=== PATIENT | male | born 1985 | race Caucasian/White ===

== ENCOUNTER 2017-01-03 12:45 | Inpatient (IN) | payer OTHER ==
[2017-01-03 12:49] VITALS: BMI 26.6
[2017-01-03] MEDS ORDERED: SODIUM CHLORIDE 1,000 ML IV STA (13:30)
[2017-01-03] MEDS ORDERED: HYDROmorphone HCL CARPU-JECT 2 MG/1 ML DISP.SYRIN IVPB ONE (13:31)
[2017-01-03] MEDS ORDERED: ONDANSETRON *ODT* 4 MG TABLET SL ONE (13:31)
[2017-01-03] MEDS ORDERED: CLINDAMYCIN 900 MG PREMIX IVPB 50 ML IVPB ONE ×2 (13:35→14:49)
[2017-01-03 14:29] LABS: BASOPHIL 0.1 % (0-2.0); MCH 29.4 pg (25.7-33.7); MCHC 33.3 g/dl (32.0-35.9); MEAN CELL VOLUME 88.4 fl (80-96); MEAN PLT VOLUME 8.5 fl (7.5-11.1); NEUTROPHILS 86.2 % (42.8-82.8); PLATELET COUNT 173 K/MM3 (134-434); RDW 12.3 % (11.9-15.9); WHITE BLOOD COUNT 13.3 K/mm3 (4.0-10.0)
--- NOTE | 2017-01-03 14:39 | PDOC ---
History of Present Illness <Janusz Hernandez - Last Filed: 01/03/17 16:10> - General History Source: Patient Exam Limitations: No Limitations - History of Present Illness Initial Comments: 01/03/17 14:46 The patient is a 31-year-old man with no past medical history who presents to the emergency department with complaints of an atraumatic right buttocks abscess for the past 4 days. Upon triage, patient was found to be febrile to 101.0 orally. He reports lifting heavy objects on Sunday. He states that this has never happened in the past. He also reports associated symptoms of chills and diaphoresis. No other complaints. No chest pain, lightheaedness, dizziness, palpitations. No cough, shortness of breath No abdominal pain, nausea, vomiting, diarrhea, constipation, hematochezia, hematuria, dysuria, urinary frequency/hesitancy, testicular pain, penile discharge. Allergies: No Known Drug Allergies Past Surgical History: Circumcision at age 15. Social History: Tobacco use (half a pack/day). Social EtOH use. No recreational drug use. <Hoda Barroso - Last Filed: 01/04/17 08:22> - General Chief Complaint: Abscess Boil Stated Complaint: RT BUTTOCKS PAIN Time Seen by Provider: 01/03/17 13:26 Past History - Past Medical History Other medical history: NONE - Psycho/Social/Smoking Cessation Hx Anxiety: No Suicidal Ideation: No Smoking Status: No Smoking History: Current every day smoker Number of Cigarettes Smoked Daily: 10 Information on smoking cessation initiated: Yes 'Breaking Loose' booklet given: 01/03/17 Hx Alcohol Use: Yes (SOCIAL) Drug/Substance Use Hx: No Substance Use Type: None <Janusz Hernandez - Last Filed: 01/03/17 16:10> <Hoda Barroso - Last Filed: 01/04/17 08:22> - Past Medical History Allergies/Adverse Reactions: Allergies Allergy/AdvReac Type Severity Reaction Status Date / Time No Known Allergies Allergy Verified 01/03/17 12:49 Home Medications: Ambulatory Orders No Home Medications 0 dose .ROUTE UTDICT 08/13/12 Review of Systems - Review of Systems Able to Perform ROS?: Yes Comments:: 01/03/17 14:48 GENERAL/CONSTITUTIONAL: Yes: Fever. Chills. Diaphoresis. HEAD, EYES, EARS, NOSE AND THROAT: No change in vision. No ear pain or discharge. No sore throat. CARDIOVASCULAR: No chest pain or shortness of breath. RESPIRATORY: No cough, wheezing, or hemoptysis. GASTROINTESTINAL: No nausea, vomiting, diarrhea or constipation. GENITOURINARY: No dysuria, frequency, or change in urination. MUSCULOSKELETAL: No joint or muscle swelling or pain. No neck or back pain. SKIN: Yes: Right buttock abscess. No rash NEUROLOGIC: No headache, vertigo, loss of consciousness, or change in strength/ sensation. ENDOCRINE: No increased thirst. No abnormal weight change. HEMATOLOGIC/LYMPHATIC: No anemia, easy bleeding, or history of blood clots. ALLERGIC/IMMUNOLOGIC: No hives or skin allergy. <Hoda Barroso - Last Filed: 01/04/17 08:22> *Physical Exam - Vital Signs Last Vital Signs Temp Pulse Resp BP Pulse Ox 101.0 F H 104 H 20 137/75 99 01/03/17 12:46 01/03/17 12:46 01/03/17 12:46 01/03/17 12:46 01/03/17 12:46 <Janusz Hernandez - Last Filed: 01/03/17 16:10> - Vital Signs Last Vital Signs Temp Pulse Resp BP Pulse Ox 101.0 F H 104 H 20 137/75 99 01/03/17 12:46 01/03/17 12:46 01/03/17 12:46 01/03/17 12:46 01/03/17 12:46 - Physical Exam Comments: 01/03/17 14:49 GENERAL: Awake, alert, and fully oriented, in no acute distress HEAD: No signs of trauma EYES: PERRLA, EOMI, sclera anicteric, conjunctiva clear ENT: Auricles normal inspection, hearing grossly normal, nares patent, oropharynx clear without exudates. Moist mucosa NECK: Normal ROM, supple, no lymphadenopathy, JVD, or masses LUNGS: Breath sounds equal, clear to auscultation bilaterally. No wheezes, and no crackles HEART: Regular rate and rhythm, normal S1 and S2, no murmurs, rubs or gallops ABDOMEN: Soft, nontender, normoactive bowel sounds. No guarding, no rebound. No masses EXTREMITIES: Normal range of motion, no edema. No clubbing or cyanosis. No cords, erythema, or tenderness NEUROLOGICAL: Cranial nerves II through XII grossly intact. Normal speech. RECTAL: Indurated right buttock cellulitis pointing at around 3 o'clock. <Hoda Barroso - Last Filed: 01/04/17 08:22> ED Treatment Course - LABORATORY CBC & Chemistry Diagram: 01/03/17 14:01 01/03/17 14:01 - RADIOLOGY Radiology Studies Ordered: Category Date Time Status ABDOMEN & PELVIS CT WITH CONTR [CT] Stat CT Scan 01/03/17 13:33 Ordered <Janusz Hernandez - Last Filed: 01/03/17 16:10> - LABORATORY CBC & Chemistry Diagram: 01/03/17 14:01 01/03/17 14:01 - ADDITIONAL ORDERS Additional order review: 01/03/17 14:01 RBC 4.22 MCV 88.4 MCHC 33.3 RDW 12.3 MPV 8.5 Neutrophils % 86.2 H Lymphocytes % 7.2 L Monocytes % 6.5 Eosinophils % 0.0 Basophils % 0.1 <Hoda Barroso - Last Filed: 01/04/17 08:22> Medical Decision Making - Medical Decision Making 01/03/17 14:50 Patient evaluated by [facility], who coincidentally happened to be in the ED. States that they will notify Dr. Hernandez regarding patient. 01/03/17 15:55 MicroBlogged [facility]. 01/03/17 16:[address] Warren. Case was discussed. Accepts case. <Hoda Barroso - Last Filed: 01/04/17 08:22> *DC/Admit/Observation/Transfer - Discharge Dispostion Admit: Yes - Attestations Physician Attestion: 01/03/17 14:39 I, Dr. Janusz Hernandez, attest that this document has been prepared under my direction and personally reviewed by me in its entirety. I further attest, that it accurately reflects all work, treatment, procedures and medical decision -making performed by me. <Janusz Hernandez - Last Filed: 01/03/17 16:10> <Hoda Barroso - Last Filed: 01/04/17 08:22> Diagnosis at time of Disposition: Perirectal abscess - Discharge Dispostion Disposition: HOME Condition at time of disposition: Good
[2017-01-03 14:44] LABS: INR 1.59 (0.82-1.09); PROTHROMBIN TIME (PATIENT) 17.7 SEC (9.98-11.88)
[2017-01-03] MEDS ORDERED: ONDANSETRON *ODT* 4 MG TABLET ONE (14:49)
[2017-01-03] MEDS ORDERED: HYDROmorphone HCL CARPU-JECT 2 MG/1 ML DISP.SYRIN ONE (14:49)
[2017-01-03 15:24] LABS: ALBUMIN 3.3 g/dl (3.4-5.0); ALK PHOS 83 U/L (45-117); ANION GAP 10 (8-16); CO2 26 mmol/L (21-32); CREATININE 0.9 mg/dL (0.7-1.3); GLUCOSE,RANDOM 109 mg/dL (74-106); SGOT/AST 17 U/L (15-37); SGPT/ALT 25 U/L (12-78); TOT PROT 7.9 g/dl (6.4-8.2)
--- NOTE | 2017-01-03 15:31 | CONSULT ---
- Consultation REQUESTING PROVIDER: Dr. Hernandez CONSULT REQUEST: We have been asked to surgically evaluate this patient for right gluteal abscess. HISTORY OF PRESENT ILLNESS: 31 yo M presented to Ed complaining of right gluteal pain/firmness that began on Sunday (3 days ago) and worsened on Sunday. The patient states the pain is severe, worse with coughing and BM's. He had associated fever and sweating. He has not had anything like this before. His last BM was diarrhea earlier today. He last ate Jello yesterday and drank a glass of coke around noon today. PMHx: Kidney stone 2 years ago, denies other PSHx: Circumcision age 15 Social History: Current every day smoker, occasional alcohol use Home Medications Medication Instructions Recorded No Home Medications 0 dose .ROUTE UTDICT 08/13/12 Allergies Allergy/AdvReac Type Severity Reaction Status Date / Time No Known Allergies Allergy Verified 01/03/17 12:49 REVIEW OF SYSTEMS: CONSTITUTIONAL: Present: fever, sweats Absent: generalized weakness CARDIOVASCULAR: Absent: chest pain, syncope, palpitations, lightheadedness RESPIRATORY: Absent: cough, shortness of breath GASTROINTESTINAL: Absent: abdominal pain, abdominal distension, nausea, vomiting GENITOURINARY: Absent: dysuria, frequency, urgency MUSCULOSKELETAL: Absent: myalgia, arthralgia SKIN: Absent: rash, itching HEMATOLOGIC/IMMUNOLOGIC: Absent: easy bleeding, easy bruising NEUROLOGIC: Absent: headache, dizziness, PHYSICAL EXAM: GENERAL: Awake, alert, and fully oriented, in no acute distress, appears uncomfortable HEAD: Normal with no signs of trauma. EYES: PERRL, sclera anicteric, conjunctiva clear. NECK: Normal ROM LUNGS: Clear to auscultation bilat anteriorly. HEART: Regular rate and rhythm ABDOMEN: Soft, nontender, not distended Buttocks: right buttock with erythema, induration and approx 4 cm area of fluctuance, very tender to palp, no opening or drainage MUSCULOSKELETAL: Normal ROM at all joints UPPER EXTREMITIES: 2+ pulses, warm, well-perfused. LOWER EXTREMITIES: 2+ pulses, warm, well-perfused NEUROLOGICAL: Normal speech, gait not observed. PSYCH: Cooperative. Good eye contact. Appropriate mood and affect. SKIN: Warm, dry Vital Signs Temperature 101.0 F H 01/03/17 12:46 Pulse Rate 104 H 01/03/17 12:46 Respiratory Rate 20 01/03/17 12:46 Blood Pressure 137/75 01/03/17 12:46 O2 Sat by Pulse Oximetry (%) 99 01/03/17 12:46 Lab Results WBC 13.3 K/mm3 (4.0-10.0) H 01/03/17 14:01 RBC 4.22 M/mm3 (4.00-5.60) 01/03/17 14:01 Hgb 12.4 GM/dL (11.7-16.9) 01/03/17 14:01 Hct 37.3 % (35.4-49) 01/03/17 14:01 MCV 88.4 fl (80-96) 01/03/17 14:01 MCHC 33.3 g/dl (32.0-35.9) 01/03/17 14:01 RDW 12.3 % (11.9-15.9) 01/03/17 14:01 Plt Count 173 K/MM3 (134-434) 01/03/17 14:01 Blood Type A NEGATIVE 01/03/17 14:08 Antibody Screen Negative 01/03/17 14:07 INR 1.59 (0.82-1.09) H 01/03/17 14:01 CT ordered by ED, pending Problem List - Problems (1) Gluteal abscess Assessment/Plan: Patient discussed with Dr. Hernandez Plan to take patient to OR tonight for I&D NPO, IV fluids IV abx Pain control Type and screen ordered by ED Code(s): L02.31 - CUTANEOUS ABSCESS OF BUTTOCK Visit type - Case Type Case Type: ED Admission - New patient This patient is new to me today: Yes Date on this admission: 01/03/17
--- NOTE | 2017-01-03 17:19 | MSN ---
Progress Note (short form) - Note Progress Note: CC: left buttock pain HPI: Patient is a 31 year old male with past medical history of hemorrhoids that presented to the ER after 5 days left buttock pain while lifting chairs at work. The pain has become progressively worse since then and has been accompanied by fevers and chills that started on Sunday night. The patient has increased pain with movement and pressure, especially when sitting. The patient has been bathing in epson salt baths with minor improvement in symptoms. The patient stated that he shaves the area regularly and has had ingrown hairs previously on his thigh that he stated felt similar but with less intensity. The patient denies any anal trauma foreign objects or penetration. The patient also denies any chest pain, SOB, headache, nausea or vomiting. SoHx: smokes 1/2 pack a day, drinks a few drinks on the weekends, and is not currently sexually active but has a history o sex with both men and women. Medhx: hemorrhoids with no surgical or medical intervention needed Allergies: no known allergies Surgical Hx: circumcision at age 15 Family Hx: no pertinent family history Home Medications Medication Instructions Recorded No Home Medications 0 dose .ROUTE UTDICT 08/13/12 Vital Signs Period Temp Pulse Resp BP Sys/Wells Pulse Ox Last 24 Hr 101.0 F 104 20 137/75 99 Exam: General- alert and oriented in no acute distress, appeared stated age. Head- head normocephalic and atraumatic Eyes- FADUMO, EOM intact, sclera inecteric and conjunctiva clear. Neck- supple, normal range of motion, trachea midline, no JVD. Heart- regular rate and rhythm, no murmurs rubs or gallops. Lungs- clear to auscultation bilaterally in all lung fontaine, with no rales, rhonchi, or wheezes. Upper extremities- 5/5 muscle strength, 2/4 pulses, normal AROM, PROM intact sensation Lower extremities- 5/5 muscle strength, 2/4 pulses, normal AROM and PROM, and intact sensation. Patient has a red erythemtous, warm, firm, and edematous abscess located on the right buttocks extending from the gluteal fold along the perianal region that is not open or draining. No penile discharge noted on penile examination. Abdomen- no guarding or distention, normoactive bowel sounds, no tenderness to palpation. Psych: Cooperative Skin: [place], warm and dry. Laboratory Results - last 24 hr 01/03/17 01/03/17 01/03/17 14:01 14:01 14:01 WBC 13.3 H RBC 4.22 Hgb 12.4 Hct 37.3 MCV 88.4 MCHC 33.3 RDW 12.3 Plt Count 173 MPV 8.5 Neutrophils % 86.2 H Lymphocytes % 7.2 L Monocytes % 6.5 Eosinophils % 0.0 Basophils % 0.1 INR 1.59 H Sodium 137 Potassium 4.1 Chloride 101 Carbon Dioxide 26 Anion Gap 10 BUN 15 Creatinine 0.9 Creat Clearance w eGFR > 60 Random Glucose 109 H Calcium 9.0 Total Bilirubin 1.0 AST 17 ALT 25 Alkaline Phosphatase 83 Total Protein 7.9 Albumin 3.3 L Lipase 67 L Blood Type Antibody Screen 01/03/17 01/03/17 14:07 14:08 WBC RBC Hgb Hct MCV MCHC RDW Plt Count MPV Neutrophils % Lymphocytes % Monocytes % Eosinophils % Basophils % INR Sodium Potassium Chloride Carbon Dioxide Anion Gap BUN Creatinine Creat Clearance w eGFR Random Glucose Calcium Total Bilirubin AST ALT Alkaline Phosphatase Total Protein Albumin Lipase Blood Type A NEGATIVE A NEGATIVE Antibody Screen Negative Assessment and Plan: Patient is a 31 year old male with a past medical history of hemmoriods that present ed to the Er after 5 day of right buttock pain and found to have sepsis secondary to right buttock abbess. 1) sepsis secondary to right buttock abbess -secondary to ingrown hair, infected razor cut, or heavy lifting - tmax >101, leukocytes of 13, HR > 90, with lactic acid pending. - give iv N/S fluid 125 mls/hr - 900 mg clindamycin given in the ED - continue clindamycin 600 mg q6hrs - Tylenol for fevers - cultures pending - NPO for possible surgery tonight - CT of abdomen and pelvis pending - Surgery consult placed
--- NOTE | 2017-01-03 17:23 | PN ---
Teaching Attending Note Name of Resident: Indy Hui ATTENDING PHYSICIAN STATEMENT I saw and evaluated the patient. I reviewed the resident's note and discussed the case with the resident. I agree with the resident's findings and plan as documented. SUBJECTIVE:31yo M c/o R buttock pain x 2days. states he had some discomfort there several days prior and thought he had an ingrown hair as he shaves his buttocks and back. pain continued to worsen and developed subjective fevers and chills yesterday which prompted him the ER. has never had similar episode in the past, never treated for soft skin infection or abscess in the past. denies CP, SOB, N/V/C/D, IVDA OBJECTIVE: Last Vital Signs Temp Pulse Resp BP Pulse Ox 101.0 F H 104 H 20 137/75 99 01/03/17 12:46 01/03/17 12:46 01/03/17 12:46 01/03/17 12:46 01/03/17 12:46 General NAD CV S1 S2 RRR no murmur/rub/gallop Lungs CTA B/L no wheezing/rales/rhonchi Buttocks- R medial buttock 3cm with surrounding erythema +fluctuant. +warmth + tender. no active drainage ASSESSMENT AND PLAN: 31yo M with no PMH presented to the ER with R buttock pain 1. Sepsis due to R buttock cellulitis and jennifer-rectal abscess- Medicine admission. Tm 101 with tachycardia and leukocytosis 13.3. CT scan pending to evaluate extension of abscess. surgery consulted and plan for I&D in the OR tonight. NPO, IVF, pain control. started on Clindamcyin 600mg Q6H. will consider adding Flagyl after procedure pending on extent of abscess. HIV testing. f/u Cx. 2. DVT ppx- EAM
[2017-01-03] MEDS ORDERED: LIDOCAINE HCL 1%, 10 MG/ML (20ML VIAL) ONE (17:39)
[2017-01-03] MEDS ORDERED: BUPIVACAINE HCL/PF 0.5% (5MG/ML) 10 ML VIAL ONE (17:39)
--- NOTE | 2017-01-03 17:46 | HP ---
CHIEF COMPLAINT: Right buttock pain PCP: Magdalena Navarrete. Cannot recall name of the doctor HISTORY OF PRESENT ILLNESS: Patient is a 31 year old male with no PMHx who presented to the ED with complaints of right buttock pain that started Sunday (12/30/16) evening and noticed it after lifting heavy chairs for his work. Patient states when he checked his right buttock he noticed an ingrown hair and started taking baths with Epson Salt without improvement. Patient the next day noticed the ingrown hair grew with a rash surrounding the area with difficulty sitting on his buttocks. He took Tylenol for pain relief but without much improvement. The following two days (01/01/17 and 01/02/17) patient reports having fever, chills , increasing left buttock pain to the point he could not sit on his buttock. Pain and tenderness worsened today without any improvement with pain medications today, which prompted this ED visit. Patient does admit to shaving his whole body including in the buttocks area and has experienced ingrown hair, but not as severe. Patient also admits to having hemorrhoids in the past but with no bleeding and no surgical intervention required. Patient denies having any similar symptoms in the past. Denies any trauma, penetration, or foreign body object insertion. Otherwise, patient denies abdominal pain, suprapubic tenderness, penile discharge, testicular pain, dysuria, frequency, hesitancy, hematuria, constipation, hematochezia, chest pain, palpitations, shortness of breath. ER course was notable for: (1) IV Normal Saline (2) IV abc with Clindamycin and Dilaudid for pain (3) Found to have fever, leukocytosis Recent Travel: Denies PAST MEDICAL HISTORY: Denies PAST SURGICAL HISTORY: Circumcision at the age of 15 Social History: Smokin/2 PPD Alcohol: Socially Drugs: Denies Sexual History: Sex with both females and males with last sexual encounter 4 months ago. Uses condoms for protection Family History: Denies Allergies: No Known Allergies Allergy (Verified 01/03/17 12:49) HOME MEDICATIONS: Home Medications Medication Instructions Recorded No Home Medications 0 dose .ROUTE UTDICT 08/13/12 REVIEW OF SYSTEMS CONSTITUTIONAL: fever, chills Absent: diaphoresis, generalized weakness, malaise, loss of appetite, weight change HEENT: Absent: rhinorrhea, nasal congestion, throat pain, throat swelling, difficulty swallowing, mouth swelling, ear pain, eye pain, visual changes CARDIOVASCULAR: Absent: chest pain, syncope, palpitations, irregular heart rate, lightheadedness , peripheral edema RESPIRATORY: Absent: cough, shortness of breath, dyspnea with exertion, orthopnea, wheezing, stridor, hemoptysis GASTROINTESTINAL: diarrhea, right buttock pain and tenderness Absent: abdominal pain, abdominal distension, nausea, vomiting, constipation, melena, hematochezia GENITOURINARY: Absent: dysuria, frequency, urgency, hesitancy, hematuria, flank pain, genital pain MUSCULOSKELETAL: Absent: myalgia, arthralgia, joint swelling, back pain, neck pain SKIN: Absent: rash, itching, pallor HEMATOLOGIC/IMMUNOLOGIC: Absent: easy bleeding, easy bruising, lymphadenopathy, frequent infections ENDOCRINE: Absent: unexplained weight gain, unexplained weight loss, heat intolerance, cold intolerance NEUROLOGIC: Absent: headache, focal weakness or paresthesias, dizziness, unsteady gait, seizure, mental status changes, bladder or bowel incontinence PSYCHIATRIC: Absent: anxiety, depression, suicidal or homicidal ideation, hallucinations. Vital Signs - 24 hr 01/03/17 01/03/17 12:46 18:22 Temperature 101.0 F H Pulse Rate 104 H 90 Respiratory 20 18 Rate Blood Pressure 137/75 125/65 O2 Sat by Pulse 99 Oximetry (%) PHYSICAL EXAMINATION GENERAL: Awake, alert, and fully oriented, in no acute distress. EYES: Pupils equal, round and reactive to light, extraocular movements intact, sclera anicteric, conjunctiva clear. EARS, NOSE, THROAT: Oropharynx clear without exudates. Moist mucous membranes. NECK: Normal range of motion, supple without lymphadenopathy, JVD, or masses. LUNGS: Breath sounds equal, clear to auscultation bilaterally. No wheezes, and no crackles. No accessory muscle use. HEART: Regular rate and rhythm, normal S1 and S2 without murmur, rub or gallop. ABDOMEN: Soft, nontender, not distended, normoactive bowel sounds, no guarding, no rebound, no masses. No hepatomegaly or splenomegaly. RIGHT BUTTOCK: Erythema, warmth, swelling, induration extending to the perianal area with no opened wound or draining. Severe tenderness and firmness upon palpation. MUSCULOSKELETAL: No CVA tenderness. LOWER EXTREMITIES: No peripheral edema. NEUROLOGICAL: Normal speech. No focal neuro deficits. No facial droop SKIN: Warm, dry, normal turgor, no rashes or lesions noted, normal capillary refill. Laboratory Results - last 24 hr 01/03/17 01/03/17 01/03/17 14:01 14:01 14:01 WBC 13.3 H RBC 4.22 Hgb 12.4 Hct 37.3 MCV 88.4 MCHC 33.3 RDW 12.3 Plt Count 173 MPV 8.5 Neutrophils % 86.2 H Lymphocytes % 7.2 L Monocytes % 6.5 Eosinophils % 0.0 Basophils % 0.1 INR 1.59 H Sodium 137 Potassium 4.1 Chloride 101 Carbon Dioxide 26 Anion Gap 10 BUN 15 Creatinine 0.9 Creat Clearance w eGFR > 60 Random Glucose 109 H Calcium 9.0 Total Bilirubin 1.0 AST 17 ALT 25 Alkaline Phosphatase 83 Total Protein 7.9 Albumin 3.3 L Lipase 67 L Blood Type Antibody Screen 01/03/17 01/03/17 14:07 14:08 WBC RBC Hgb Hct MCV MCHC RDW Plt Count MPV Neutrophils % Lymphocytes % Monocytes % Eosinophils % Basophils % INR Sodium Potassium Chloride Carbon Dioxide Anion Gap BUN Creatinine Creat Clearance w eGFR Random Glucose Calcium Total Bilirubin AST ALT Alkaline Phosphatase Total Protein Albumin Lipase Blood Type A NEGATIVE A NEGATIVE Antibody Screen Negative ASSESSMENT/PLAN: Patient is a 31 year old male with no PMHx who presents with left buttocks pain and was found to be septic in the emergency department. Patient admitted for further monitoring and management. Sepsis Secondary to Right Buttocks Cellulitis and Abscess -Likely secondary to ingrown hair, Infected razor -Initially fever >101, Leukocytosis >13, HR >90 -Lactic Acid pending -Continue IV normal Saline @125mls/hr -Continue Clindamycin 600mg IVPB Q6H for anaerobic, gram positive, and MRSA coverage -Continue Tylenol 1gm IVPB Q6H PRN -Blood cultures pending -CT abdomen and pelvis pending to assess how deep and the extent of the abscess -NPO for surgery tonight -Continue Pain control with Dilaudid 1mg Q4H PRN F/E/N -IV NS @125mls/hr -Electrolytes wnl -NPO Prophylaxis -SCD's for DVT. Patient low risk and ambulates -No GI prophylaxis indicated Disposition -Full code -Surgery this evening. Visit type - Emergency Visit Emergency Visit: Yes ED Registration Date: 01/03/17 Care time: The patient presented to the Emergency Department on the above date and was hospitalized for further evaluation of their emergent condition. - New Patient This patient is new to me today: Yes Date on this admission: 01/05/17 - Critical Care Critical Care patient: No
[2017-01-03] MEDS ORDERED: ACETAMINOPHEN 1000 MG/100 ML VIAL (NON FORMULARY) IVPB ONE (17:51)
[2017-01-03] MEDS ORDERED: HYDROmorphone HCL CARPU-JECT 1 MG/1 ML DISP.SYRIN IVPB PRN (17:54)
[2017-01-03] MEDS ORDERED: SODIUM CHLORIDE 1,000 ML IV SCH (18:00)
[2017-01-03] MEDS ORDERED: ACETAMINOPHEN INJECTION 100 ML IVPB ONE (18:07)
[2017-01-03] MEDS ORDERED: ACETAMINOPHEN 1000 MG/100 ML VIAL (NON FORMULARY) IVPB PRN ×2 (18:29→21:11)
--- NOTE | 2017-01-03 20:15 | OP ---
Operative Note - Note: Operative Date: 01/03/17 Pre-Operative Diagnosis: jennifer rectal abcess Operation: incision and drainage of abcess Findings: jennifer-rectal abcess Surgeon: Ham Hernandez Anesthesia: General Specimens Removed: cultures Estimated Blood Loss (mls): 10 Operative Report Dictated: Yes
[2017-01-03] MEDS ORDERED: PROPOFOL 20 ML ONE ×3 (20:16→20:25)
[2017-01-03] MEDS ORDERED: MIDAZOLAM HCL 2 MG/2 ML SINGLE DOSE VIAL ONE (20:16)
[2017-01-03] MEDS ORDERED: LIDOCAINE HCL/PF 2% SDV 5ML VIAL ONE (20:17)
[2017-01-03] MEDS ORDERED: KETOROLAC TROMETHAMINE 30 MG/1 ML VIAL ONE (20:39)
[2017-01-03] MEDS ORDERED: ONDANSETRON 4 MG/2 ML VIAL ONE (20:39)
[2017-01-03] MEDS ORDERED: CLINDAMYCIN 600MG PREMIX IVPB 50 ML IVPB SCH (21:00)
[2017-01-03] MEDS: SODIUM CHLORIDE 1,000 ML IV SCH (21:00)
[2017-01-03] MEDS ORDERED: ONDANSETRON 4 MG/2 ML VIAL IVPUSH PRN (21:04)
[2017-01-03] MEDS ORDERED: PROMETHAZINE HCL 25 MG/1 ML VIAL IVPUSH PRN (21:04)
[2017-01-03] MEDS ORDERED: LACTATED RINGERS SOLUTION 1,000 ML IV SCH (21:15)
[2017-01-03] MEDS: CLINDAMYCIN 600MG PREMIX IVPB 50 ML IVPB SCH (22:18)
[2017-01-04] MEDS: CLINDAMYCIN 600MG PREMIX IVPB 50 ML IVPB SCH ×4 (02:47→20:57)
[2017-01-04] MEDS ORDERED: CLINDAMYCIN 600MG PREMIX IVPB 50 ML IVPB SCH (03:00)
[2017-01-04] MEDS: SODIUM CHLORIDE 1,000 ML IV SCH (06:15)
[2017-01-04] MEDS ORDERED: ACETAMINOPHEN 325 MG TABLET (FP) PO ONE (06:18)
[2017-01-04 07:32] LABS: INR 1.55 (0.82-1.09); PROTHROMBIN TIME (PATIENT) 17.2 SEC (9.98-11.88)
[2017-01-04 07:35] LABS: ACTIVATED PTT 30.4 SECONDS (26.9-34.4)
[2017-01-04 07:52] LABS: MCH 29.6 pg (25.7-33.7); MCHC 33.7 g/dl (32.0-35.9); MEAN CELL VOLUME 87.7 fl (80-96); MEAN PLT VOLUME 9.3 fl (7.5-11.1); PLATELET COUNT 170 K/MM3 (134-434); RDW 12.6 % (11.9-15.9); WHITE BLOOD COUNT 11.3 K/mm3 (4.0-10.0)
[2017-01-04] MEDS: HYDROmorphone HCL CARPU-JECT 1 MG/1 ML DISP.SYRIN IVPB PRN ×2 (08:53→10:42)
[2017-01-04] MEDS ORDERED: HYDROmorphone HCL CARPU-JECT 1 MG/1 ML DISP.SYRIN IVPB ONE (10:42)
--- NOTE | 2017-01-04 10:44 | PN ---
Progress Note (short form) - Note Progress Note: Surgery- Dr. Hernandez Patient seen and examined. Patient resting, pain controlled. States he had some feeling of fever and sweats overnight. He is tolerating his diet and urinating without issue. Denies nausea, vomiting. Last Vital Signs Temp Pulse Resp BP Pulse Ox 98.2 F 79 18 122/73 100 01/04/17 08:22 01/04/17 08:22 01/04/17 08:22 01/04/17 08:22 01/03/17 21:45 CBC, BMP 01/04/17 06:20 01/03/17 14:01 Exam: Gen: NAD Buttocks: right buttock s/p I&D of perianal abscess, dressings and sheets saturated with serosanguinous drainage, dressing and packing replaced, surrounding erythema and firmess Problem List - Problems (1) Gluteal abscess Assessment/Plan: POD#1 s/p incision and drainage of perirectal abcess Additional 1 mg IV Dilaudid ordered x1, saturated packing and dressing replaced Pain management Regular diet Continue IV abx, follow-up cultures, ID consult Patient discussed with Dr. Hernandez Code(s): L02.31 - CUTANEOUS ABSCESS OF BUTTOCK
--- NOTE | 2017-01-04 11:08 | MSN ---
Progress Note (short form) - Note Progress Note: Subjective: Patient was sen by me at the bedside. when asked patient stated that he is feeling better. He is complaining of pain in the right buttocks which he believes to be post operative in nature. The pain is dissimilar and less intense than the pain felt on previous days. Patient is also complaining of "feeling hot" and still feels febrile. His temperature was take at the bedside and found to be 99.4. Otherwise, the patient denies any nausea, vomiting, headache, chest pain, SOB, or diarrhea. Vital Signs Period Temp Pulse Resp BP Sys/Wells Pulse Ox Last 24 Hr 98.2 F-102.2 F 70-104 14-22 105-137/60-75 96-100 Exam: Gen- alert and oriented in no acute distress Heart- Regular rate and rhythm with no murmurs, rubs or gallops Lungs- clear to auscultation bilaterally in all lung fontaine, with no rale, rhonchi or wheezes Extremities- 5/5 muscle strength, 2/4 pulses, with intact sensation in all extremities. There is no lower limb edema. Right buttocks is bandaged with evidence fluid draining through the bandaging with little evidence of blood present. Abdomen- No guarding or distension, normactive bowel sounds, no tenderness to palpation. Laboratory Results - last 24 hr 01/03/17 01/03/17 01/03/17 14:01 14:01 14:01 WBC 13.3 H RBC 4.22 Hgb 12.4 Hct 37.3 MCV 88.4 MCHC 33.3 RDW 12.3 Plt Count 173 MPV 8.5 Neutrophils % 86.2 H Lymphocytes % 7.2 L Monocytes % 6.5 Eosinophils % 0.0 Basophils % 0.1 INR 1.59 H PTT (Actin FS) Sodium 137 Potassium 4.1 Chloride 101 Carbon Dioxide 26 Anion Gap 10 BUN 15 Creatinine 0.9 Creat Clearance w eGFR > 60 Random Glucose 109 H Lactic Acid Calcium 9.0 Total Bilirubin 1.0 AST 17 ALT 25 Alkaline Phosphatase 83 Total Protein 7.9 Albumin 3.3 L Lipase 67 L Blood Type Antibody Screen 01/03/17 01/03/17 01/03/17 14:07 14:08 18:10 WBC RBC Hgb Hct MCV MCHC RDW Plt Count MPV Neutrophils % Lymphocytes % Monocytes % Eosinophils % Basophils % INR PTT (Actin FS) Sodium Potassium Chloride Carbon Dioxide Anion Gap BUN Creatinine Creat Clearance w eGFR Random Glucose Lactic Acid 1.2 Calcium Total Bilirubin AST ALT Alkaline Phosphatase Total Protein Albumin Lipase Blood Type A NEGATIVE A NEGATIVE Antibody Screen Negative 01/04/17 01/04/17 06:20 06:20 WBC 11.3 H RBC 4.09 Hgb 12.1 Hct 35.9 MCV 87.7 MCHC 33.7 RDW 12.6 Plt Count 170 MPV 9.3 Neutrophils % Lymphocytes % Monocytes % Eosinophils % Basophils % INR 1.55 H PTT (Actin FS) 30.4 Sodium Potassium Chloride Carbon Dioxide Anion Gap BUN Creatinine Creat Clearance w eGFR Random Glucose Lactic Acid Calcium Total Bilirubin AST ALT Alkaline Phosphatase Total Protein Albumin Lipase Blood Type Antibody Screen Current Medications Generic Name Dose Route Start Last Admin Trade Name Freq PRN Reason Stop Dose Admin Acetaminophen 1,000 mg 01/03/17 21:11 Ofirmev Injection - IVPB 01/04/17 12:30 Q6H PRN FEVER OR PAIN Acetaminophen 650 mg 01/04/17 10:35 Tylenol - PO Q6H PRN FEVER OR PAIN Hydromorphone HCl 1 mg 01/03/17 21:11 01/04/17 08:53 Dilaudid Injection - IVPB 1 mg Q4H PRN Administration PAIN Clindamycin Phosphate 50 mls @ 100 mls/hr 01/03/17 22:15 01/04/17 08:46 Cleocin 600 Mg Premix Ivpb - IVPB 100 mls/hr Q6H-IV THU Administration Imaging: CT abdomen and Pelvis (01/03/17)- 7 x 6 x 3 cm right perianal abscess, small non- obstructing renal calculi, with mild splenomegaly. Assessment and Plan: Patient is a 31 year old male with a past medical history of hemmoriods that present to the ED after 5 day of right buttock pain and found to have sepsis secondary to right buttock abbess. 1) Sepsis secondary to right buttock abbess - resolved - possibly secondary to ingrown hair, infected razor cut, or heavy lifting - tmax >101, currently 99.4 - leukocytes resolved at a value of 11.3 - MA within normal range - lactic acid on 04/05/17 was within nomral limits at 1.2 - D/C IV N/S fluid 125 mls/hr - D/C IV lactated ringers 1000 mls @ 125 mls/hr - 900 mg clindamycin given in the ED - D/C IV clindamycin 600 mg 50 mls @ 100 mls/hr q6hrs - Start clindamycin 600 mg PO q6hrs - Tylenol 650 mg PO q 6hr PRN for fevers - cultures pending - Surgery on board
--- NOTE | 2017-01-04 11:15 | PN ---
Physical Exam: SUBJECTIVE: Patient seen and examined by me at bedside. POD #1 s/p incision and drainage of right perianal abscess. Patient reports right buttock pain but his significantly improved since yesterday and is not the same pain prior to surgery. Otherwise, patient denies nausea, vomiting, abdominal pain, chest pain , palpitations, shortness of breath, dizziness. OBJECTIVE: Vital Signs Period Temp Pulse Resp BP Sys/Wells Pulse Ox Last 24 Hr 98.2 F-102.2 F 70-92 14-22 105-126/60-74 96-100 GENERAL: Awake, alert, and fully oriented, in no acute distress. LUNGS: Breath sounds equal, clear to auscultation bilaterally. No wheezes, and no crackles. No accessory muscle use. HEART: Regular rate and rhythm, normal S1 and S2 without murmur, rub or gallop. ABDOMEN: Soft, nontender, not distended, normoactive bowel sounds, no guarding, no rebound, no masses. RIGHT BUTTOCK: Packing and dressing in the right buttocks area with mild erythema and serosanguinous drainage. LOWER EXTREMITIES: No peripheral edema. NEUROLOGICAL: Normal speech. No focal neuro deficits. No facial droop Laboratory Results - last 24 hr 01/03/17 01/04/17 01/04/17 18:10 06:20 06:20 WBC 11.3 H RBC 4.09 Hgb 12.1 Hct 35.9 MCV 87.7 MCHC 33.7 RDW 12.6 Plt Count 170 MPV 9.3 INR 1.55 H PTT (Actin FS) 30.4 Lactic Acid 1.2 Active Medications Generic Name Dose Route Start Last Admin Trade Name Lenora PRN Reason Stop Dose Admin Acetaminophen 1,000 mg 01/03/17 21:11 Ofirmev Injection - IVPB 01/04/17 12:30 Q6H PRN FEVER OR PAIN Acetaminophen 650 mg 01/04/17 10:35 Tylenol - PO Q6H PRN FEVER OR PAIN Hydromorphone HCl 1 mg 01/03/17 21:11 01/04/17 08:53 Dilaudid Injection - IVPB 1 mg Q4H PRN Administration PAIN Clindamycin Phosphate 50 mls @ 100 mls/hr 01/03/17 22:15 01/04/17 08:46 Cleocin 600 Mg Premix Ivpb - IVPB 100 mls/hr Q6H-IV THU Administration ASSESSMENT/PLAN: Patient is a 31 year old male with no PMHx who presents with left buttocks pain and was found to be septic in the emergency department. Patient admitted for further monitoring and management. Sepsis Secondary to Right Buttocks Cellulitis and Abscess -Likely secondary to ingrown hair, Infected razor -Will discontinue Clindamycin and begin Unasyn 1.5g Q6H -Continue Tylenol 650mg Q6H PRN for fevers -Blood cultures and wound cultures pending -As per surgeon, necrotic tissue removed with extensive cellulitis removed -Continue Pain control with Dilaudid 1mg Q4H PRN -HIV rapid ordered F/E/N -IV NS @125mls/hr -Electrolytes wnl -Regular diet Prophylaxis -SCD's for DVT. Patient low risk and ambulates -No GI prophylaxis indicated Disposition -Full code -Continues to have low grade fevers. Cultures pending. Visit type - Emergency Visit Emergency Visit: Yes ED Registration Date: 01/03/17 Care time: The patient presented to the Emergency Department on the above date and was hospitalized for further evaluation of their emergent condition. - New Patient This patient is new to me today: No - Critical Care Critical Care patient: No
--- NOTE | 2017-01-04 13:37 | PN ---
Teaching Attending Note Name of Resident: Indy Hui ATTENDING PHYSICIAN STATEMENT I saw and evaluated the patient. I reviewed the resident's note and discussed the case with the resident. I agree with the resident's findings and plan as documented. SUBJECTIVE:continues to have pain in buttock but improved since yesterday. able to sit without difficulty. denies Cp, SOB,fever, chills, N/V/C/D OBJECTIVE: Last Vital Signs Temp Pulse Resp BP Pulse Ox 98.2 F 79 18 122/73 100 01/04/17 08:22 01/04/17 08:22 01/04/17 08:22 01/04/17 08:22 01/03/17 21:45 General NAD Buttocks- R medial buttock with packing. firm around edges. remains tender. erythema improved. ASSESSMENT AND PLAN: 31yo M with no PMH presented to the ER with R buttock pain 1. Sepsis due to R buttock cellulitis and jennifer-rectal abscess- afebrile. s/p I& D 01/03 yesterday. as per report copious necrotic tissuse removed and concern for rectal involvement. ID consulted. pain control. wound management per surgery. f/u Cx. 2. DVT ppx- EAM
--- NOTE | 2017-01-04 14:17 | PN ---
Progress Note (short form) - Note Progress Note: Anesthesia postop note 31 y/o M s/p GA for i&d perirectal abscess POD31, vss, aaox3, pain well controlled No anesthesia complications.
--- NOTE | 2017-01-04 14:41 | PN ---
Progress Note, Physician Chief Complaint: ID 31 year old male presents with perirectal abscess. He is not diabetic and no history of inflammatory bowel disease Had incision and drainage of collection. Low grade fever with WBC elevation - Current Medication List Current Medications: Active Medications Acetaminophen (Tylenol -) 650 mg PO Q6H PRN PRN Reason: FEVER OR PAIN Hydromorphone HCl (Dilaudid Injection -) 1 mg IVPB Q4H PRN PRN Reason: PAIN Last Admin: 01/04/17 08:53 Dose: 1 mg Clindamycin Phosphate (Cleocin 600 Mg Premix Ivpb -) 50 mls @ 100 mls/hr IVPB Q6H-IV THU Last Admin: 01/04/17 08:46 Dose: 100 mls/hr - Objective Vital Signs: Vital Signs Temperature 97.8 F 01/04/17 13:43 Pulse Rate 71 01/04/17 13:43 Respiratory Rate 18 01/04/17 09:00 Blood Pressure 113/71 01/04/17 13:43 O2 Sat by Pulse Oximetry (%) 100 01/04/17 09:00 Constitutional: Yes: Well Nourished, No Distress HENT: Yes: WNL, Atraumatic Neck: Yes: WNL, Supple Cardiovascular: Yes: S1, S2. No: Murmur Respiratory: Yes: WNL, Regular, CTA Bilaterally Gastrointestinal: Yes: WNL, Normal Bowel Sounds, Soft. No: Tenderness ...Rectal Exam: Yes: Other (perirectal incsion with packing tender no erythema crepitance fluctuance) Edema: No Labs: CBC, BMP 01/04/17 06:20 INR, PTT INR 1.55 (0.82-1.09) H 01/04/17 06:20 Problem List - Problems (1) Perirectal abscess Code(s): K61.1 - RECTAL ABSCESS Assessment/Plan Microbiology Laboratory Tests 01/03/17 01/03/17 14:01 14:01 WBC 13.3 H Hgb 12.4 Plt Count 173 Creatinine 0.9 Assessment Perirectal abscess drained now per surgery Plan Unasyn 1.5grs q 6 H switch to Augmentin HIV testing Wound care Isabel RAMIREZ
[2017-01-04] MEDS: ACETAMINOPHEN 325 MG TABLET (FP) PO PRN (17:50)
[2017-01-04 18:02] LABS: HIV 1 AGp24 NEGATIVE
[2017-01-04] MEDS ORDERED: IBUPROFEN 800 MG/8 ML IJ IVPB ONE (20:03)
[2017-01-05] MEDS: CLINDAMYCIN 600MG PREMIX IVPB 50 ML IVPB SCH (02:41)
[2017-01-05] MEDS: ACETAMINOPHEN 325 MG TABLET (FP) PO PRN (02:45)
[2017-01-05 08:10] LABS: MCH 29.7 pg (25.7-33.7); MCHC 33.9 g/dl (32.0-35.9); MEAN CELL VOLUME 87.7 fl (80-96); MEAN PLT VOLUME 9.1 fl (7.5-11.1); PLATELET COUNT 185 K/MM3 (134-434); RDW 12.5 % (11.9-15.9); WHITE BLOOD COUNT 7.3 K/mm3 (4.0-10.0)
[2017-01-05] MEDS: AMPICILLIN NA/SULBACTAM NA 100 ML IVPB SCH ×2 (08:28→17:52)
[2017-01-05] MEDS: HYDROmorphone HCL CARPU-JECT 1 MG/1 ML DISP.SYRIN IVPB PRN ×2 (08:34→12:46)
[2017-01-05 08:52] LABS: HIV 1 & 2 AB PRELIMINARY POSITIVE
--- NOTE | 2017-01-05 12:37 | MSN ---
Progress Note (short form) - Note Progress Note: Subjective: Patient was seen by me at the bedside. Patient stated that he felt better today in comparison to previous days. He sad that over the night he felt febrile with associated sweating. The patient is currently afebrile and is not complaining of any associated fever symptoms. Patient is eating and drinking without problem and is urinating and defecating regularly. The patient is having reduced pain in the right buttocks and describes the current pain as burning. The Patient denies any additional nauseas, vomiting, chest pain, SOB, headache or diarrhea. Vital Signs Period Temp Pulse Resp BP Sys/Wells Pulse Ox Last 24 Hr 97.8 F-99.4 F 65-80 18-20 113-139/62-86 97-99 Laboratory Results - last 24 hr 01/04/17 01/05/17 15:20 06:50 WBC 7.3 D RBC 4.18 Hgb 12.4 Hct 36.7 MCV 87.7 MCHC 33.9 RDW 12.5 Plt Count 185 MPV 9.1 HIV 1&2 Antibody Screen Preliminary positive HIV P24 Antigen Negative Current Medications Generic Name Dose Route Start Last Admin Trade Name Freq PRN Reason Stop Dose Admin Acetaminophen 650 mg 01/04/17 10:35 01/05/17 02:45 Tylenol - PO 650 mg Q6H PRN Administration FEVER OR PAIN Hydromorphone HCl 1 mg 01/03/17 21:11 01/05/17 08:34 Dilaudid Injection - IVPB 1 mg Q4H PRN Administration PAIN Ampicillin Sodium/Sulbactam Sodium 100 mls @ 200 mls/hr 01/05/17 08:00 08:28 Unasyn 1.5 Gm (Pre-Docked) IVPB 200 mls/hr Q8H-IV THU Administration Imaging: CT abdomen and Pelvis (01/03/17)- 7 x 6 x 3 cm right perianal abscess, small non- obstructing renal calculi, with mild splenomegaly. Assessment and Plan: Patient is a 31 year old male with a past medical history of hemorrhoids that presented to the ED after 5 day of right buttock pain and found to have sepsis secondary to right buttock abbess. 1) Sepsis secondary to right buttock abbess - resolved - possibly secondary to ingrown hair, infected razor cut, or heavy lifting - tmax >101, currently 98.5 - leukocytes resolved at a current value of 7.3 - GA within normal range - lactic acid on 04/05/17 was within normal limits at 1.2 - 900 mg clindamycin given in the ED - D/C IV clindamycin 600 mg 50 mls @ 100 mls/hr q6hrs - Start Unasyn 1.5 gm 100 mls @200 mls/hr IVPB q8hr, as per infectious disease consult. (day 3 of antibiotics) - plant to switch to Augmentin upon discharge - continue Tylenol 650 mg PO q 6hr PRN for fevers - gram stain of abscess shows gram negative bacilli and Gram positive cocci in pairs - Surgery on board 2) Preliminary positive HIV test - awaiting confirmatory test results - infectious disease notified
--- NOTE | 2017-01-05 13:45 | PN ---
Progress Note (short form) - Note Progress Note: ID Remains afebrile Unasyn Selected Entries 01/05/17 10:00 Temperature 98.5 F Pulse Rate 69 Respiratory 20 Rate Blood Pressure 121/86 Perirectal abscess drained packlng Microbiology 01/03/17 10:08 Abscess Gram Stain - Final 01/03/17 18:10 Blood - Peripheral Venous Blood Culture - Preliminary NO GROWTH OBTAINED AFTER 24 HOURS, INCUBATION TO CONTINUE FOR 4 DAYS. 01/03/17 18:10 Blood - Peripheral Venous Blood Culture - Preliminary NO GROWTH OBTAINED AFTER 24 HOURS, INCUBATION TO CONTINUE FOR 4 DAYS. 01/03/17 10:08 Abscess Wound Culture - Preliminary Lactose Fermenting Neg Bacilli Laboratory Tests 01/03/17 01/03/17 01/04/17 14:01 14:01 15:20 WBC 13.3 H Hgb Hct Plt Count Creat Clearance w eGFR > 60 Total Protein 7.9 HIV 1&2 Ag/Ab, 4th Gen HIV 1&2 Antibody Screen Preliminary positive 01/04/17 01/05/17 15:20 06:50 WBC 7.3 D Hgb 12.4 Hct 36.7 Plt Count 185 Creat Clearance w eGFR Total Protein HIV 1&2 Ag/Ab, 4th Gen Pending HIV 1&2 Antibody Screen Assessment HIV infection preliminary screen back 4th generation pending Perirectal collection drained with gram negative isis Plan Discharge planning Final culture pending Consider Augmentin for discharge 875 mg bid 5 days if no sensitivity back Regarding preliminary HIV result This was told to patient as a preliminary result as I was concerned he might be lost to follow up. All of his for now limited concerns addressed. I will plan to see him in follow up at the [facility] or my off to a least confirm the HIV results. For now will order T cells and genotype and RPR STD screening probe. Isabel RAMIREZ Problem List - Problems (1) Perirectal abscess Code(s): K61.1 - RECTAL ABSCESS (2) HIV infection Code(s): Z21 - ASYMPTOMATIC HUMAN IMMUNODEFICIENCY VIRUS INFECTION STATUS
--- NOTE | 2017-01-05 16:14 | PN ---
Teaching Attending Note Name of Resident: Indy Hui ATTENDING PHYSICIAN STATEMENT I saw and evaluated the patient. I reviewed the resident's note and discussed the case with the resident. I agree with the resident's findings and plan as documented. SUBJECTIVE:pain has improved. denies CP, SOB,fever, chills, N/V/C/D OBJECTIVE: Last Vital Signs Temp Pulse Resp BP Pulse Ox 98.3 F 75 20 137/98 97 01/05/17 14:14 01/05/17 14:14 01/05/17 10:00 01/05/17 14:14 01/05/17 09:00 General NAD Buttocks- R medial buttock with packing. firm around edges. remains tender. erythema improved. +serous drainage ASSESSMENT AND PLAN: 31yo M with no PMH presented to the ER with R buttock pain 1. Sepsis due to R buttock cellulitis and jennifer-rectal abscess- afebrile. s/p I& D 01/03. continues to have serous drainage. recommend sitz bath. wound care per surgery. on Unasyn. will d/c on Augmentin to complete 1 week of abx. will f/u with ID and Surgery next week. pain control with tylenol 2. Preliminary HIV +- prelim +. news reported to pt by ID. confirmatory workup sent, CD4, VL, STD, RPR testing sent. pt to follow up next week with ID to follow up results and initiation of care. 3. DVT ppx- EAM 4. d/c home with augmentin, ID and surgery follow up
--- NOTE | 2017-01-05 18:02 | DS ---
Physical Exam: SUBJECTIVE: Patient seen and examined by me at bedside. POD #2 s/p incision and drainage of right perianal abscess. Patient reports extreme pain only when packing and unpacking the wound but has improved since initial presentation. Otherwise, patient denies nausea, vomiting, abdominal pain, chest pain, palpitations, shortness of breath, dizziness. OBJECTIVE: Vital Signs Period Temp Pulse Resp BP Sys/Wells Pulse Ox Last 24 Hr 98.2 F-99.4 F 65-80 18-20 121-139/62-98 97-99 PHYSICAL EXAM GENERAL: Awake, alert, and fully oriented, in no acute distress. LUNGS: Breath sounds equal, clear to auscultation bilaterally. No wheezes, and no crackles. No accessory muscle use. HEART: Regular rate and rhythm, normal S1 and S2 without murmur, rub or gallop. ABDOMEN: Soft, nontender, not distended, normoactive bowel sounds, no guarding, no rebound, no masses. RIGHT BUTTOCK: Packing and dressing in the right buttocks area with mild erythema and serosanguinous drainage. LOWER EXTREMITIES: No peripheral edema. NEUROLOGICAL: Normal speech. No focal neuro deficits. No facial droop LABS Laboratory Results - last 24 hr //17 / 15:20 06:50 WBC 7.3 D RBC 4.18 Hgb 12.4 Hct 36.7 MCV 87.7 MCHC 33.9 RDW 12.5 Plt Count 185 MPV 9.1 HIV 1&2 Antibody Screen Preliminary positive HIV P24 Antigen Negative HOSPITAL COURSE: Patient is a 31 year old male with no PMHx who presents with left buttocks pain and was found to be septic in the emergency department. Patient was found to have perianal abscess and was sent to the OR. Patient had incision and drainage of right perianal abscess with no complications. Surgeon found the wound to be necrotic with cellulitis. Wound cultures were sent and patient started on IV clincamycin and then switched to Unasyn. Patient's wound cultures positive for organism of lactose fermenting neg bacilli. Patient has been afebrile with no leukocytosis after surgery. Patient had appropriate response to pain medications. STD/HIV blood work was taken and patient found to have preliminary positive HIV. Spoke to patient about the reults and he was unaware of his HIV status. Additional labs were taken and wound cultures still pending. However, ID spoke to patient and will follow up with Dr. Hall on Sunday for blood results and wound culture results. Patient will have VNS for dressing and packing of wound. Patient stable for discharge and will be sent with Augmentin for another 5 days. Patient will be going home with family member Date of Admission:01/03/17 Date of Discharge: 01/05/17 Minutes to complete discharge: 35 Discharge Summary Reason For Visit: PERIRECTAL ABSCESS Current Active Problems Gluteal abscess (Acute) HIV infection (Acute) Perirectal abscess (Acute) Condition: Stable - Instructions Diet, Activity, Other Instructions: -You were admitted for a perianal abscess that required surgery. You will be sent home with antibiotics for 5 days. Please spanish moss picker the antibiotics from the pharmacy. -You were found to have preliminary positive results for HIV. You had additional lab work done that you will need to follow up with Dr. Hall, the infectious disease doctor who will be managing this. His contact information will be given to you in the discharge packet. You will follow up with him this sunday (01/08/17) -You may resume your regular diet and exercise -If you experience any symptoms please return to the emergency department -Take extra strength tylenol for the pain as needed. Do not exceed more than 4000mg a day -You will need to have Sitz bath twice a day once in the morning and once in the evening. You will also need to have a sitz bath after every bowel movement. THen pack the wound after the bath. Disposition: HOME - Home Medications Comprehensive Discharge Medication List: Ambulatory Orders No Home Medications 0 dose .ROUTE UTDICT 08/13/12 Amox-Tr/K Cl [Augmentin - 875Mg Tablet] 1 tab PO BID #10 tablet 01/05/17 This patient is new to me today: No Emergency Visit: Yes ED Registration Date: 01/03/17 Care time: The patient presented to the Emergency Department on the above date and was hospitalized for further evaluation of their emergent condition. Critical Care patient: No - Discharge Referral Referred to [facility] Med P.C.: No
[2017-01-05 19:19] VITALS: BP 138/90; PULSE 66; TEMP 98.6
[2017-01-08 00:06] LABS: % CD 4 POS LYM 19.9 % (30.8-58.5); %CD3+CD4+CD8+ 1.7 % (Not Estab.); %CD3+CD4+CD8- 18.2 % (Not Estab.); %CD3+CD4-CD8+ 59.3 % (Not Estab.); %CD3+CD4-CD8- 1.8 % (Not Estab.); ABSO. CD 3 1215 /uL (622-2402); ABSOLUTE CD 4 HELPER 299 /uL (359-1519); AbsCD3+CD4+CD8+ 26 /uL (Not Estab.); AbsCD3+CD4-CD8+ 890 /uL (Not Estab.); AbsCD3+CD4-CD8- 27 /uL (Not Estab.); CD4/CD8 0.33 (0.92-3.72); CD4/CD8 NYSDOH RATIO 0.31 (Not Estab.)
--- NOTE | 2017-01-10 11:58 | OP ---
DATE OF OPERATION: 01/03/2017 PREOPERATIVE DIAGNOSIS: Perirectal abscess. POSTOPERATIVE DIAGNOSIS: Perirectal abscess. PROCEDURE: Incision and drainage of perirectal abscess. SURGEON: Ham Castillo MD ANESTHESIA: General. POSITION: Lithotomy. SPECIMEN: Culture. DISPOSITION: Patient tolerated procedure well. This is a 31-year-old male who presented to the emergency room with pain in the perianal region. Diagnosis confirmed perirectal abscess by both physical exam and CT scan. Patient was then referred for surgical evaluation, and then surgery was advised. The patient agreed to proceed as planned. In the operating room, the patient was placed in supine position. After induction of general anesthesia, he was placed in lithotomy position. The perianal region was prepped and draped. The area appeared to have a sinus with spontaneous drainage of purulent material. This was incised open in a cruciate fashion approximately 2 cm and the area was explored with finger probing and examination. Multiple pockets were debrided and drained. There was some necrotic tissue clearly visible, which was debrided sharply with cautery. The area was irrigated and suctioned. Cultures were obtained and the wound was packed with iodoform packing gauze, and sterile dressing was applied. The patient was returned to the recovery room awake, alert, in stable condition. He tolerated procedure well. HAM CASTILLO M.D. JOHN/[id number]
[2017-01-11 10:11] LABS: CHLA.TRACHOMATI Negative (Negative)
== END 2017-01-05 21:04 | disposition home or self-care (01) | DRG 710 ==
LOC: JER 12:45 → JERBED 16:14 → J6S 18:04
PROVIDERS: ADMIT Internal Medicine; ATTEND Internal Medicine
PROC: 0D9P0ZX Drainage of Rectum, Open Approach, Diagnostic (ICD-10-PCS; principal; 2017-01-03 19:00)
DX: A41.89 Other specified sepsis (principal); L02.31 Cutaneous abscess of buttock; K61.1 Rectal abscess; F17.210 Nicotine dependence, cigarettes, uncomplicated; K64.8 Other hemorrhoids; N20.0 Calculus of kidney; L03.317 Cellulitis of buttock; Z21 Asymptomatic human immunodeficiency virus [HIV] infection status; D72.828 Other elevated white blood cell count
CPT/HCPCS: 36415; 74177-TC; 80053; 83605; 83690; 85025; 85027; 85610; 85730; 86359; 86360; 86850; 86900; 86901; 87040; 87070; 87186; 87205; 87389; 87491; 87591; 87900; 87901; 87906; 94010; 94760; 99282-25